=== PATIENT | male | born 1955 | race American Indian/Alaskan Native ===

== ENCOUNTER 2017-02-10 07:15 | Day surgery (SDC) | payer OTHER ==
[2017-02-10 08:26] VITALS: BMI 24.7
[2017-02-10] MEDS ORDERED: Propofol 10 mg/ml Inj (20 ML) ONE (09:25)
--- NOTE | 2017-02-10 09:28 | CP.SDSHP ---
Same Day Surgery H & P - History Proposed Procedure: colonscopy Pre-Op Diagnosis: SEE NOTES - Previous Medical/Surgical History Neuro: Other Misc: Other Pain: 2.Mild Pain - Allergies Allergies: Allergies No Known Allergies Allergy (Verified 02/10/17 08:23) - Physical Exam General Appearance: N Vital Signs: Vital Signs 02/10/17 08:27 Temperature 98.4 F Pulse Rate 80 Respiratory 20 Rate Blood Pressure 113/72 O2 Sat by Pulse 97 Oximetry Mental Status: Alert & Oriented x3 Neuro: WNL Heart: WNL Lungs: WNL GI: WNL - {Optional Preform as Required} Breast: WNL Abdomen: Other Rectal: WNL Integument: WNL : WNL Ortho: Other ENT: WNL - Impression Pt. Evaluated Today:Candidate for Anesthesia & Procedure: Yes - Date & Time Time: :28 Short Stay Discharge - Short Stay Discharge Admitting Diagnosis/Reason for Visit: SCREENING Disposition: HOME/ ROUTINE
[2017-02-10] MEDS ORDERED: Belladonna-Phenobarbital PO STA (09:29)
[2017-02-10] MEDS ORDERED: Lactated Ringer's 500 ML IV ONE ×2 (09:33)
[2017-02-10 10:07] VITALS: O2SAT 100
[2017-02-10 10:50] VITALS: BP 114/69; PULSE 74; RESP 11; TEMP 97.1
== END 2017-02-10 10:50 | disposition home or self-care (01) ==
LOC: C.ENDO 07:15
PROVIDERS: ATTEND Specialist
DX: Z12.11 Encounter for screening for malignant neoplasm of colon (principal); K63.89 Other specified diseases of intestine; K58.9 Irritable bowel syndrome, unspecified; K64.8 Other hemorrhoids
CPT/HCPCS: 45380; 88305; J2704; J7120